=== PATIENT | male | born 1950 | race Caucasian/White ===

== ENCOUNTER 2016-10-12 12:43 | Emergency (ER) | payer BC ==
[2016-10-12 12:33] LABS: BASOPHILS 0.9 %; BASOPHILS ABSOLUTE 0.06 10/3/uL (0.0-0.16); EOSINOPHILS 5.4 %; EOSINOPHILS ABSOLUTE 0.38 10/3/uL (0.0-0.53); ER CBC TAT 0 Hrs 03 Mins; HEMATOCRIT 45.1 % (40.0-51.0); HEMOGLOBIN 15.5 g/dL (13.6-17.8); IMMATURE GRANULOCYTES 0.3 %; IMMATURE GRANULOCYTES ABSOLUTE 0.02 10/3/uL (0.0-0.11); LYMPHOCYTES 16.7 %; LYMPHOCYTES ABSOLUTE 1.17 10/3/uL (0.67-4.30); MEAN CORPUS HGB CONC 34.4 g/dL (32.0-36.0); MEAN CORPUSCULAR HEMOGLOB 30.5 pg (26.0-34.0); MEAN CORPUSCULAR VOLUME 88.6 fL (80-100); MEAN PLATELET VOLUME 8.9 fL (9.2-13.0); MONOCYTES 7.1 %; NEUTROPHILS 69.6 %; NEUTROPHILS ABSOLUTE 4.87 10/3/uL (2.02-8.40); PLATELET COUNT 298 10/3/uL (150-400); RBC DISTRIBUTION WIDTH 13.6 % (12.0-16.0); RED CELL COUNT 5.09 10/6/uL (4.7-6.1)
[2016-10-12 12:34] LABS: MANUAL DIFF NO %
[2016-10-12 12:43] LABS: PARTIAL THROMBO TIME 26.5 SEC (22.5-37.2); PROTIME (NOT ORD) 13.2 SEC (12.0-14.5)
[~2016-10-12 12:43] MED LIST: ASA5GR PO; COQ-10200 MG PO; D100 PO; FISH OIL PO; KEPPRA500 PO; PHENOBARB32.4 MG PO; PROZAC40 MG PO; VITAMIN B PO; VITAMIN D1000 UNI1 PO; [UNRECOGNIZED DRUG - REMARK] PO
[2016-10-12 12:50] LABS: ALBUMIN 3.7 G/DL (3.5-5.0); BUN (BLOOD UREA NITROGEN) 8 MG/DL (6-23); CALCIUM, SERUM 8.9 MG/DL (8.5-10.4); CHLORIDE, SERUM 103 MMOL/L (96-112); CREATININE 0.77 MG/DL (0.70-1.30); GFR AFRICAN AMERICAN 108 ML/MIN (>=60); GFR NON AFRICAN AMERICAN 93 ML/MIN (>=60); GLOBULIN 3.6 G/DL (2.5-4.1); GLUCOSE, SERUM 104 MG/DL (60-99); SGPT(ALT) 24 U/L (5-65); SODIUM, SERUM 143 MMOL/L (135-148); TOTAL BILIRUBIN 0.5 MG/DL (0-1.2); TOTAL PROTEIN 7.3 G/DL (6.0-8.5)
[2016-10-12 12:51] LABS: ALKALINE PHOSPHATASE 183 U/L (45-117); CO2 (CARBON DIOXIDE) 31 MMOL/L (24-34)
[2016-10-12 12:52] LABS: SGOT(AST) 20 U/L (5-40)
== END 2016-10-12 13:40 | disposition home or self-care (01) ==
LOC: ER 12:43
PROVIDERS: Hospitalist
DX: S22.41XA Multiple fractures of ribs, right side, initial encounter for closed fracture (principal); F32.9 Major depressive disorder, single episode, unspecified; Z86.73 Personal history of transient ischemic attack (TIA), and cerebral infarction without residual deficits; Z87.891 Personal history of nicotine dependence; Z88.5 Allergy status to narcotic agent; Z88.8 Allergy status to other drugs, medicaments and biological substances; Z79.82 Long term (current) use of aspirin; Z79.899 Other long term (current) drug therapy; W18.11XA Fall from or off toilet without subsequent striking against object, initial encounter
CPT/HCPCS: 71101; 80053; 85025; 85610; 85730; 93005; 99284

== ENCOUNTER 2016-11-20 09:55 | Emergency (ER) | payer BC | END 2016-11-20 10:45 | disposition home or self-care (01) | LOC: ER 09:55 | DX: S42.011A Anterior displaced fracture of sternal end of right clavicle, initial encounter for closed fracture (principal); Z86.73 Personal history of transient ischemic attack (TIA), and cerebral infarction without residual deficits; Z88.5 Allergy status to narcotic agent; Z88.8 Allergy status to other drugs, medicaments and biological substances; Z79.82 Long term (current) use of aspirin; Z79.899 Other long term (current) drug therapy; W06.XXXA Fall from bed, initial encounter | CPT/HCPCS: 71101; 73000-RT; 99283 ==